=== PATIENT | female | born 1995 | race Caucasian/White ===

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

== ENCOUNTER 2021-03-05 17:33 | Emergency (ER) | payer OTHER ==
--- NOTE | 2021-03-05 18:49 | NUR ---
PT LWBS, DR. MOTTA MADE AWARE.
[2021-03-06] MEDS ORDERED: CIPR7.5S RIGHT EAR ×2 (01:29→01:43)
[2021-03-06] MEDS ORDERED: AMOX-1000 PO ×2 (01:29→01:43)
== END 2021-03-05 18:49 | disposition left against medical advice (07) ==
LOC: MED 17:33
DX: R11.0 Nausea (principal); H92.09 Otalgia, unspecified ear; Z53.21 Procedure and treatment not carried out due to patient leaving prior to being seen by health care provider

== ENCOUNTER 2021-03-05 21:24 | Emergency (ER) | payer OTHER ==
[~2021-03-05] VITALS: Ht 154.9 cm; Wt 61.7 kg
[2021-03-05 21:35] VITALS: BP 121/76
--- NOTE | 2021-03-05 21:38 | NUR ---
TO LOBBY A/W BED AMBULATORY
[2021-03-05] MEDS ORDERED: NEOMYCIN/POLYMYXIN/HC OT SOL. 10 ML BTL RIGHT EAR ONE (22:40)
--- NOTE | 2021-03-05 23:22 | NUR ---
pt taken to CT via w/c
[2021-03-05 23:33] LABS: BASOPHILS % (AUTO) 0.4 % (0.0-2.0); EOSINOPHILS % (AUTO) 0.2 % (0.0-4.0); HEMATOCRIT 40.8 % (36-48); LYMPHOCYTES # (AUTO) 1.8 K/uL (2.5-16.5); LYMPHOCYTES % (AUTO) 16.3 % (20.5-51.1); MEAN CORPUSCULAR HEMOGLOBIN 29 pg (27-31); MEAN CORPUSCULAR HGB CONC 34 g/dL (33-37); MEAN CORPUSCULAR VOLUME 85.6 fL (80-94); MONOCYTES # (AUTO) 0.5 K/uL (0.8-1.0); MONOCYTES % (AUTO) 4.7 % (1.7-9.3); NEUTROPHILS # (AUTO) 8.8 K/uL (1.8-7.7); NEUTROPHILS % (AUTO) 78.4 % (42.2-75.2); PLATELET COUNT (AUTO) 346 K/uL (140-450); RED BLOOD CELL COUNT(AUTO) 4.77 MIL/uL (4.20-5.40); RED CELL DISTRIBUTION WIDTH 13.2 % (11.6-13.7); WHITE BLOOD COUNT (AUTO) 11.3 K/uL (4.8-10.8)
[2021-03-06] LABS: ANION GAP 15.9 (8-16); CARBON DIOXIDE 24.4 mmol/L (21-32); CREATININE 0.4 mg/dL (0.6-1.3); POTASSIUM 5.3 mmol/L (3.5-5.1); TOTAL BILIRUBIN 1.2 mg/dL (0.0-1.0)
[2021-03-06] MEDS ORDERED: AMOX-1000 PO ×2 (01:29→01:43)
[2021-03-06] MEDS ORDERED: CIPR7.5S RIGHT EAR ×2 (01:29→01:43)
[2021-03-06] MEDS ORDERED: AMOXIL/CLAVULANATE 500/125 MG 1 TAB PO SCH (01:30)
[2021-03-06] MEDS ORDERED: IBUPROFEN 800 MG TAB PO ONE (01:30)
[2021-03-06] MEDS ORDERED: cephALEXin 500 MG CAP PO ONE (01:35)
--- NOTE | 2021-03-06 01:50 | NUR ---
d/c with VSS. d/c education given. opportunity to ask questions given and answered. rx of augmentin and cipro ear drop given. IV site removed, bleeding controlled with sterile gauze and reinforced with tape.
[2021-03-06 01:52] VITALS: BP 149/58
== END 2021-03-06 01:50 | disposition home or self-care (01) ==
LOC: MED 21:24
DX: H60.91 Unspecified otitis externa, right ear (principal); Z79.899 Other long term (current) drug therapy
CPT/HCPCS: 36415; 70481; 80053; 84702; 85025; 99285; Q9967